=== PATIENT | male | born 1975 | race Two or more races ===

== ENCOUNTER 2021-09-18 15:11 | Emergency (ER) | payer OTHER ==
[~2021-09-18] VITALS: Ht 180.3 cm; Wt 92.7 kg
[2021-09-18] MEDS ORDERED: ZITHROMAX250 MG PO (16:18)
== END 2021-09-18 16:53 | disposition home or self-care (01) ==
LOC: FSED 15:33
DX: J20.9 Acute bronchitis, unspecified (principal); E11.9 Type 2 diabetes mellitus without complications
CPT/HCPCS: 71045; 99283